=== PATIENT | female | born 1985 | race Caucasian/White ===

== ENCOUNTER 2017-05-19 22:48 | Emergency (ER) | payer SELFPAY ==
[~2017-05-19] VITALS: Ht 170.2 cm; Wt 61.2 kg
[2017-05-20] MEDS ORDERED: TRAMADOL HCL50 MG PO (01:19)
[2017-05-20] MEDS ORDERED: DOXYCYCLINE HY100 MG PO (01:19)
== END 2017-05-20 01:30 | disposition home or self-care (01) ==
LOC: ED 22:48
DX: L03.114 Cellulitis of left upper limb (principal); F17.200 Nicotine dependence, unspecified, uncomplicated; Z90.49 Acquired absence of other specified parts of digestive tract; Z88.2 Allergy status to sulfonamides
CPT/HCPCS: 99283